=== PATIENT | male | born 1935 | race Caucasian/White ===

== ENCOUNTER 2016-09-14 05:31 | Day surgery (SDC) | payer MEDICARE ==
[~2016-09-14 05:31] MED LIST: ASAB PO; ATEN25 PO; FLOMAX4 PO; LIPITOR10 PO; MOBIC15 MG PO; MULTIPLE VIT PO; PROTONIX PO; VASOTEC20 MG PO; VITC500 PO
== END 2016-09-14 08:13 | disposition home or self-care (01) ==
LOC: SDC 05:31
PROVIDERS: Orthopaedic Surgery
PROC: B01BZZZ Fluoroscopy of Spinal Cord (ICD-10-PCS; 2016-09-14)
PROC: 3E0R3BZ Introduction of Anesthetic Agent into Spinal Canal, Percutaneous Approach (ICD-10-PCS; principal; 2016-09-14 07:15)
DX: M54.16 Radiculopathy, lumbar region (principal); I25.10 Atherosclerotic heart disease of native coronary artery without angina pectoris; I11.0 Hypertensive heart disease with heart failure; I50.9 Heart failure, unspecified; K21.9 Gastro-esophageal reflux disease without esophagitis; E78.00 Pure hypercholesterolemia, unspecified; M19.90 Unspecified osteoarthritis, unspecified site; Z90.49 Acquired absence of other specified parts of digestive tract; Z87.442 Personal history of urinary calculi; Z98.890 Other specified postprocedural states
CPT/HCPCS: J2250; J3010; Q9967